=== PATIENT | female | born 1950 | race Caucasian/White ===

== ENCOUNTER 2017-02-01 21:55 | Emergency (ER) | payer BC, OTHER ==
[2017-02-02] MEDS ORDERED: NORMAL SALINE 500 ML IV ONE (00:11)
--- NOTE | 2017-02-02 00:11 | ER Document Report ---
ED Fever - General Mode of Arrival: Ambulatory Information source: Patient, Relative - spouse - HPI Patient complains to provider of: fever Associated symptoms: Other - See above <SANTIAGO ASHFORD - Last Filed: 02/02/17 02:09> <BLAYNE PINZON - Last Filed: 02/03/17 21:21> - General Chief Complaint: Fever Stated Complaint: FEVER Notes: Patient is a 66 year old female, with a past medical history including HTN and diabetes, who presents to the emergency department complaining of fever. Patient 's reports the fever has been intermittent for the past 5 days and got up to 104 today just prior to arrival. Patient has been taking Tylenol and Motrin at home and began a Tamaflu course on Thursday night. Patient also complains of body aches and diaphoresis. Patient denies nausea, shortness of breath, cough, diarrhea, and sore throat. states that last Tylenol dose was at 2000. PCP: Dr. Watkins (SANTIAGO ASHFORD) - Related Data Allergies/Adverse Reactions: shrimp shells Adverse Reaction (Mild, Uncoded 01/13/13 08:50) swelling Past Medical History - General Information source: Patient - Social History Smoking Status: Unknown if Ever Smoked Family History: Reviewed & Not Pertinent - Past Medical History Cardiac Medical History: Reports: Hx Hypertension - TAKEN MED SINCE 2 YRS Pulmonary Medical History: Reports: Hx Bronchitis - YRS AGO Endocrine Medical History: Reports: Hx Diabetes Mellitus Type 1 - SINCE 4 YRS Musculoskeltal Medical History: Reports Hx Arthritis Past Surgical History: Reports: Hx Abdominal Surgery - GALLBLADDER - Immunizations Hx Diphtheria, Pertussis, Tetanus Vaccination: Yes Hx Pneumococcal Vaccination: 10/19/09 <SANTIAGO ASHFORD - Last Filed: 02/02/17 02:09> Review of Systems - Review of Systems Constitutional: See HPI, Diaphoresis, Fever, Other - body aches EENT: denies: Throat pain Cardiovascular: No symptoms reported Respiratory: denies: Cough, Short of breath Gastrointestinal: denies: Nausea Genitourinary: No symptoms reported Female Genitourinary: No symptoms reported Musculoskeletal: No symptoms reported Skin: No symptoms reported Hematologic/Lymphatic: No symptoms reported Neurological/Psychological: No symptoms reported -: Yes All other systems reviewed and negative <SANTIAGO ASHFORD - Last Filed: 02/02/17 02:09> Physical Exam - Vital signs Interpretation: Febrile - General General appearance: Appears well, Alert - HEENT Head: Normocephalic, Atraumatic - Respiratory Respiratory status: No respiratory distress Chest status: Nontender Breath sounds: Normal Chest palpation: Normal - Cardiovascular Rhythm: Regular Murmur: Yes - 4 out 4 systolic ejection - Abdominal Inspection: Normal Distension: No distension Bowel sounds: Normal Tenderness: Nontender Organomegaly: No organomegaly - Extremities General upper extremity: Normal inspection General lower extremity: Normal inspection - Neurological Neuro grossly intact: Yes Cognition: Normal Orientation: AAOx4 Sly Coma Scale Eye Opening: Spontaneous [place] Coma Scale Verbal: Oriented [place] Coma Scale Motor: Obeys Commands Sly Coma Scale Total: 15 Speech: Normal - Psychological Associated symptoms: Normal affect, Normal mood - Skin Skin Temperature: Hot Skin Moisture: Dry Skin Color: Normal <SANTIAGO ASHFORD - Last Filed: 02/02/17 02:09> <BLAYNE PINZON - Last Filed: 02/03/17 21:21> - Vital signs Vitals: Temp Pulse BP Pulse Ox 99.3 F 92 132/49 H 96 02/01/17 22:43 02/01/17 22:43 02/01/17 22:43 02/01/17 22:43 Course - Laboratory Result Diagrams: 02/02/17 00:33 02/02/17 00:33 <SANTIAGO ASHFORD - Last Filed: 02/02/17 02:09> - Laboratory Result Diagrams: 02/02/17 00:33 02/02/17 00:33 <BLAYNE PINZON - Last Filed: 02/03/17 21:21> - Re-evaluation Re-evalutation: 02/02/17 02:47 Patient presents emergency, chief with a fever. Fever onset Tmax 104 today. States it was intermittently present when she woke up this morning she felt great and then it came back a couple hours later she's been taking Tylenol Motrin which controlled her fever. She had some bodyaches the other day so her daughter gave her some leftover Tamiflu which she took 4 times. She has any headache blurred vision double vision neck pain and stiffness cough chest pain shortness breath nausea vomiting dull pain diarrhea or urinary symptoms flank pain. On examination she is afebrile well-appearing nontoxic no acute distress with no nuchal rigidity heart lungs abdomen soft no guarding rebound rigidity. Urinalysis came back showing a significantly large urinary tract infection. Patient given IV Rocephin discharge on Macrobid no acute concerns for pyelonephritis or kidney stone. Patient will be discharged on Macrobid follow primary care physician one to 2 days fever control and discussed reasons for ED return sooner (BLAYNE PINZON) - Vital Signs Vital signs: Temp Pulse Resp BP Pulse Ox 99.9 F 88 16 149/51 H 98 02/02/17 04:11 02/02/17 04:11 02/02/17 04:11 02/02/17 04:11 02/02/17 04:11 - Laboratory Laboratory results interpreted by me: 02/02/17 02/02/17 02/02/17 00:33 00:33 02:03 RBC 3.50 L Hgb 10.5 L Hct 30.3 L Seg Neutrophils % 82.2 H Lymphocytes % 8.9 L Absolute Neutrophils 8.5 H Potassium 3.5 L BUN 35 H Est GFR (Non-Af Amer) 59 L Glucose 128 H AST 39 H Urine Protein 30 H Urine Blood MODERATE H Urine Nitrite POSITIVE H Ur Leukocyte Esterase LARGE H Discharge <SANTIAGO ASHFORD - Last Filed: 02/02/17 02:09> <BLAYNE PINZON - Last Filed: 02/03/17 21:21> - Discharge Clinical Impression: UTI (urinary tract infection) Qualifiers: Urinary tract infection type: acute cystitis Hematuria presence: without hematuria Qualified Code(s): N30.00 - Acute cystitis without hematuria Condition: Stable Disposition: HOME, SELF-CARE Instructions: Urinary Tract Infection, Child ([facility]) Additional Instructions: Urinary Tract Infection Your evaluation indicates that you have a urinary tract infection. This is due to germs growing in the bladder. This is a common problem. This infection usually responds quickly to antibiotics. Your antibiotic should be taken exactly as prescribed. Drink plenty of fluids -- three to four quarts a day. Occasionally, a bladder anesthetic will be prescribed to help stop the feeling of urgency until the antibiotic has a chance to clear the infection. This may cause your urine to be dark orange. Certain urine infections require a culture. If the doctor obtained a culture, the results will be back in two days. You should call to see if a change in treatment is needed. A repeat urinalysis after you finish treatment is often recommended. The physician will let you know if further testing is required. Call the doctor if you develop fever, chills, flank pain, inability to urinate, or blood in the urine. Prescriptions: Nitrofurantoin/Nitrofuran Mac [Macrobid 100 mg Capsule] 1 tab PO BID #20 capsule Referrals: ROBERT WATKINS MD [Primary Care Provider] - Follow up tomorrow (In one to 2 days return for increasing worsening or new symptoms) Scribe Attestation: 02/03/17 21:21 i personally performed the services described in the documentation, reviewed the documentation recorded by the scribe in my presence and accurately and completely records my words and actions (BLAYNE PINZON) Scribe Documentation - Scribe Written by Charlie:: charlie Olguin, 02/02/17, 0217 acting as scribe for :: Joe <SANTIAGO ASHFORD - Last Filed: 02/02/17 02:09>
[2017-02-02 00:47] LABS: ABSOLUTE LYMPHOCYTES (AUTO) 0.9 10^3/uL (0.5-4.7); ABSOLUTE MONOCYTES (AUTO) 0.9 10^3/uL (0.1-1.4); ABSOLUTE NEUT (AUTO) 8.5 10^3/uL (1.7-8.2); BASOPHILS % (AUTO) 0.3 % (0-2); EOSINOPHILS % (AUTO) 0.1 % (0-6); HEMATOCRIT 30.3 % (36.0-47.0); HEMOGLOBIN 10.5 g/dL (12.0-15.5); HGB HCT DIFFERENCE 1.2; LYMPHOCYTES % (AUTO) 8.9 % (13-45); MEAN CORPUSCULAR HGB CONC 34.7 g/dL (32.0-36.0); MEAN CORPUSCULAR VOLUME 87 fl (80-97); MONOCYTES % (AUTO) 8.5 % (3-13); RED CELL DISTRIBUTION WIDTH 13.2 % (11.5-14.0); SEGMENTED NEUTROPHILS % (AUTO) 82.2 % (42-78); WHITE BLOOD COUNT 10.3 10^3/uL (4.0-10.5)
[2017-02-02 01:06] LABS: ALANINE AMINOTRANSFERASE 44 U/L (9-52); ALBUMIN 3.9 g/dL (3.5-5.0); ALKALINE PHOSPHATASE 59 U/L (38-126); ANION GAP 14 (5-19); ASPARTATE AMINO TRANSFERASE 39 U/L (14-36); BILIRUBIN,DIRECT 0.2 mg/dL (0.0-0.4); BILIRUBIN,TOTAL 0.5 mg/dL (0.2-1.3); BLOOD UREA NITROGEN 35 mg/dL (7-20); CALCIUM 10.1 mg/dL (8.4-10.2); CARBON DIOXIDE 25 mmol/L (22-30); CHLORIDE 100 mmol/L (98-107); CREATININE RESULT 0.94 mg/dL (0.52-1.25); GLUCOSE 128 mg/dL (75-110); POTASSIUM 3.5 mmol/L (3.6-5.0); SODIUM 139.4 mmol/L (137-145); TOTAL PROTEIN 6.8 g/dL (6.3-8.2)
[2017-02-02 01:17] LABS: TROPONIN I 0.02 ng/mL
[2017-02-02 02:32] LABS: APPEARANCE,URINE CLOUDY; BILIRUBIN,URINE NEGATIVE (NEGATIVE); GLUCOSE, URINE NEGATIVE (NEGATIVE); KETONES,URINE NEGATIVE (NEGATIVE); LEUKOCYTE ESTERASE,URINE LARGE (NEGATIVE); NITRITE,URINE POSITIVE (NEGATIVE); PROTEIN,URINE 30 mg/dL (NEGATIVE); URINE SPECIFIC GRAVITY 1.014; UROBILINOGEN,URINE NEGATIVE mg/dL (<2.0)
[2017-02-02] MEDS ORDERED: CEFTRIAXONE INJ 1000 MG VIAL IV ONE (02:46)
[2017-02-02 04:26] VITALS: BP 149/51
== END 2017-02-02 04:27 | disposition home or self-care (01) ==
LOC: ER 21:55
DX: N30.00 Acute cystitis without hematuria (principal); R50.9 Fever, unspecified; I10 Essential (primary) hypertension; R61 Generalized hyperhidrosis; R52 Pain, unspecified; E10.9 Type 1 diabetes mellitus without complications; R01.1 Cardiac murmur, unspecified
CPT/HCPCS: 99284; 96361; 96365; 36415; 87070; 87086; 87880; 85025; 87088; 80053; 81001; 84484; 87186; 87804; 83880; 71020; J0696; J7040

== ENCOUNTER 2017-08-04 10:23 | Day surgery (SDC) | payer MEDICARE ==
[~2017-08-04 10:23] MED LIST: BUPIVACAINE HCL 0.75% INJ/PF (7.5 MG/1 ML) 10 ML SDV OD PRN; CHONDR SU A NA/HYALUR INTRAOC KIT (SURGICARE) ONE; KETOROLAC TROMETHAMINE 0.45% 4 DROP/0.4 ML DROPERETTE OD PRN; LIDOCAINE 4% INJ/PF (40 MG/ML) 5 ML AMPUL OD PRN; PHENYLEPHRINE/KETOROLAC 1%-0.3% 4 ML VIAL ONE
[2017-08-04] MEDS: CYCLOPENTOLATE 0.2%/PHENYLEPHRINE 1% OPH SOLN 2 ML OD PRN ×3 (10:37→10:57)
[2017-08-04] MEDS: BESIFLOXACIN HCL 0.6% OPH SUSP 5 ML BOTTLE OD PRN ×4 (10:37→11:36)
[2017-08-04] MEDS: TROPICAMIDE 1% OPH SOLN 3 ML OD PRN ×3 (10:37→10:57)
[2017-08-04] MEDS: TETRACAINE HCL 0.5% OPH SOLN 0.6 ML DROPERETTE OD PRN ×2 (10:38→10:57)
[2017-08-04] MEDS ORDERED: MIDAZOLAM 2 MG/2 ML INJ ONE (11:00)
[2017-08-04] MEDS ORDERED: LIDOCAINE 1% INJ-PF (10 MG/ML) 30 ML SDV ONE (11:20)
--- NOTE | 2017-08-04 11:53 | [facility] OPERATIVE REPORT E ---
[facility] Operative Report NAME: ATIYA SOTOMAYOR AGE: 67Y DATE OF SURGERY: 08/04/2017 ROOM: PREOPERATIVE DIAGNOSIS: Cataract, right eye. POSTOPERATIVE DIAGNOSIS: Cataract, right eye. PROCEDURE PERFORMED: Phacoemulsification with posterior chamber intraocular lens, right eye. SURGEON: Nieves Fairbanks MD ANESTHESIA: Topical with MAC. INDICATIONS FOR SURGERY: Difficulty reading road signs and words on TV. Unable to see view of the retina. Best corrected visual acuity 20/400. PROCEDURE: The patient was brought to the operating room and placed on the operative table. Following tetracaine drops, topical anesthesia was administered. This consisted of instrument wipe pledgets soaked in a solution of 4% Xylocaine mixed with 0.75% Marcaine in a 1:2 ratio. A 2 x 1 cm pledget was placed in the superior fornix. A 1 x 1 cm pledget was placed in the inferior fornix. The eye was patched shut for 5 minutes. The patch was removed. The eye was sterilely prepped and draped in the usual manner. Lid speculum was placed in the eye. The pledgets were removed. 4-0 black silk sutures were placed around the superior and the inferior rectus muscles to be used as traction. A conjunctival peritomy was made at the 10 o'clock position. Hemostasis was obtained with bipolar cautery. A posterior limbal groove was created using a crescent knife and dissected anteriorly towards the cornea. A sharp point blade was used to create a paracentesis site at the 2 o'clock position. A 2.4 mm keratome was used to enter the anterior chamber through the groove. Viscoelastic was injected into the anterior chamber. An anterior capsulotomy was performed using Utrata forceps in a capsulorrhexis fashion. Hydrodissection and hydrodelineation were performed. Phacoemulsification was performed in [id number] technique. A total of 2 minutes 52 seconds phaco time was used. Following this, the I/A unit was used to remove residual cortex. Viscoelastic was injected into the capsular bag. Intraocular lens model [id number], 23.0 diopters, serial number [id number] was placed in the capsular bag. The I/A unit was used to remove residual viscoelastic. The wound was seen to be watertight under high and low pressure, and no sutures were placed. The intraocular lens was well centered. The pressure was adjusted in the eye to normal pressure. The 4-0 black silk sutures and lid speculum were removed. The eye was shielded after Besivance drops were placed. The patient tolerated the procedure well and was sent to the recovery room in good condition. DICTATING PHYSICIAN: NIEVES FAIRBANKS M.D. [id number] PHY#: [id number] ID: [id number] JOB#: [id number] ACCT: [id number] cc:NIEVES FAIRBANKS M.D. >
--- NOTE | 2017-08-04 11:53 | [facility] DISCHARGE SUMMARY E ---
[facility] Discharge Summary NAME: ATIYA SOTOMAYOR AGE: 67Y ADMITTED: 08/04/2017 DISCHARGED: 08/04/2017 PREOPERATIVE DIAGNOSIS: Cataract, right eye. POSTOPERATIVE DIAGNOSIS: Cataract, right eye. HOSPITAL COURSE: The patient is a 67-year-old lady who underwent uneventful cataract extraction with intraocular lens implant, right eye, on 08/04/2017. She will be discharged to home. She was instructed to resume preoperative medications, take Tylenol as needed for discomfort, to keep her eye shielded, to use Besivance, Durezol, and Ilevro at 3 p.m. and 8 p.m., and to followup in my office in 1 day. DICTATING PHYSICIAN: GREARDO FAIRBANKS M.D. [id number] PHY#: [id number] ID: [id number] JOB#: [id number] ACCT: [id number] cc:GERARDO FAIRBANKS M.D. >
== END 2017-08-04 12:30 | disposition home or self-care (01) ==
LOC: SC 10:23
PROVIDERS: ATTEND Ophthalmology
PROC: 08RJ3JZ Replacement of Right Lens with Synthetic Substitute, Percutaneous Approach (ICD-10-PCS; principal; 2017-08-04 11:30)
DX: H25.811 Combined forms of age-related cataract, right eye (principal); H04.123 Dry eye syndrome of bilateral lacrimal glands; H40.023 Open angle with borderline findings, high risk, bilateral; E11.9 Type 2 diabetes mellitus without complications; I10 Essential (primary) hypertension; E78.00 Pure hypercholesterolemia, unspecified; M19.90 Unspecified osteoarthritis, unspecified site; K21.9 Gastro-esophageal reflux disease without esophagitis; Z79.899 Other long term (current) drug therapy; Z79.82 Long term (current) use of aspirin; Z79.84 Long term (current) use of oral hypoglycemic drugs
CPT/HCPCS: 66984; 82962; V2632; J2250; J3490 ×2; C9447; 142

== ENCOUNTER 2019-01-22 20:29 | Emergency (ER) | payer MEDICARE ==
[2019-01-22] MEDS ORDERED: HYDROCODONE/ACETAMINOPHEN 5-325 MG TABLET PO ONE (21:52)
[2019-01-22] MEDS ORDERED: DIPH/PERTUSS(ACELL)/TETANUS VAC/PF 0.5 ML SYR (>=10YO) IM ONE (21:52)
--- NOTE | 2019-01-22 21:58 | ER Document Report ---
ED General - General Chief Complaint: Facial Injury Stated Complaint: FALL/FACIAL INJURY Time Seen by Provider: 01/22/19 21:37 Mode of Arrival: Ambulatory Information source: Patient TRAVEL OUTSIDE OF THE [place] IN LAST 30 DAYS: No - HPI Patient complains to provider of: Ground-level fall with facial injury and right knee injury Onset: Just prior to arrival Onset/Duration: Sudden Severity: Moderate Pain Level: 3 Associated symptoms: None Exacerbated by: Denies Relieved by: Denies Similar symptoms previously: No Recently seen / treated by doctor: No Notes: Constitutional: No fevers. No chills. EENT: No eye redness. No eye pain. No ear pain. No sore throat. Right-sided face and chin abrasion. Positive for mucosal lip laceration Cardiovascular: No chest pain. No palpitations. Respiratory: No cough. No shortness of breath. No respiratory distress. Gastrointestinal: No abdominal pain. No nausea, vomiting, or diarrhea. Genitourinary: Atraumatic. No lesions. No pain. No discharge. Musculoskeletal: Atraumatic. No swelling. No deformities. Positive for right knee pain and swelling Skin: No rash or lesions. Lymphatic: No swollen lymph nodes. Neurologic: No headache. No syncope. Psychiatric: No suicidal or homicidal ideation. - Related Data Allergies/Adverse Reactions: shrimp shells Adverse Reaction (Mild, Uncoded 01/22/19 20:32) swelling Past Medical History - General Information source: Patient - Social History Smoking Status: Never Smoker Chew tobacco use (# tins/day): No Drug Abuse: None Family History: Reviewed & Not Pertinent Patient has suicidal ideation: No Patient has homicidal ideation: No - Past Medical History Cardiac Medical History: Reports: Hx Hypertension - ON MEDS Denies: Hx Coronary Artery Disease, Hx Heart Attack Pulmonary Medical History: Reports: Hx Bronchitis - YRS AGO Denies: Hx Asthma, Hx COPD, Hx Pneumonia Neurological Medical History: Denies: Hx Cerebrovascular Accident, Hx Seizures Endocrine Medical History: Reports: Hx Diabetes Mellitus Type 1 - SINCE 6 YRS Renal/ Medical History: Denies: Hx Peritoneal Dialysis GI Medical History: Denies: Hx Hepatitis, Hx Hiatal Hernia, Hx Ulcer Musculoskeletal Medical History: Reports Hx Arthritis Infectious Medical History: Denies: Hx Hepatitis Past Surgical History: Reports: Hx Abdominal Surgery - GALLBLADDER. Denies: Hx Adenoidectomy, Hx Hysterectomy, Hx Mastectomy, Hx Open Heart Surgery, Hx Pacemaker - Immunizations Hx Diphtheria, Pertussis, Tetanus Vaccination: Yes Hx Pneumococcal Vaccination: 10/19/09 Physical Exam - Vital signs Vitals: Temp Pulse Resp BP Pulse Ox 98.0 F 82 18 162/58 H 100 01/22/19 21:00 01/22/19 21:00 01/22/19 21:00 01/22/19 21:00 01/22/19 21:00 - Notes Notes: General: Well-developed, well-nourished. In no acute distress. Non-toxic appearing. Cardiac: Well-perfused. Regular rate and rhythm. No murmurs, rubs, or gallops. Pulmonary: No respiratory distress. No cyanosis. Bilateral lung bonilla are clear to auscultation. Abdominal: Non-distended. Non-rigid. Bowels sounds are present in all four quadrants. No guarding or rebound. HEENT: Head is atraumatic. Conjunctivae not reddened. No tearing. PERRL. EOMI. Orbits atraumatic. No periorbital swelling or erythema. Oropharynx is without erythema, swelling, or exudates. Abrasions to the right maxillary region and right chin. There is a jagged avulsed laceration to the right lateral chin whi ch measures approximately 3 cm and extends into the subcutaneous tissues. There is a small puncture half centimeter laceration to the inner mucosa of the right upper lip. There is no vermilion border involvement. There is a swelling and bruising along the nose without any asymmetry. No septal hematomas. Dentition is unaffected. There is no dental malalignment. Neck: Supple. No adenopathy. No meningismus. Dermatologic: Warm with good turgor. No rash. Atraumatic. Chest: Atraumatic. No chest wall tenderness to palpation. Musculoskeletal: Moves all extremities well. No range of motion deficits. no muscular or joint tenderness. No paraspinal muscle tenderness. no midline spinal tenderness or step-off. The right anterior knee is moderately swollen and bruised diffusely tender to palpate. Full range of motion. No obvious laxity. Distal neurovascular exam is intact. There are multiple abrasions to the vulvar aspect of the left wrist without any bony deformity or range of motion deficits. Distal neurovascular exam is intact Genitourinary: Examination deferred Neurologic: No gross neurologic deficits. Psychiatric: Normal mood. Course - Vital Signs Vital signs: Temp Pulse Resp BP Pulse Ox 98.0 F 82 18 162/58 H 100 01/22/19 21:00 01/22/19 21:00 01/22/19 21:00 01/22/19 21:00 01/22/19 21:00 Procedures - Laceration/Wound Repair Chin Time completed: 00:38 Wound length (cm): 3 Wound's Depth, Shape: Irregular, Contused tissue Laceration pre-procedure: Sterile PPE donned, Sterile drapes applied, Shur-Clens applied Anesthetic type: 1% Lidocaine Volume Anesthetic (mLs): 10 Wound explored: Contaminated, Foreign body removed - There was a tiny piece of road material/asphalt embedded in the wound. Irrigated w/ Saline (mLs): 120 Wound Debrided: Minimal Wound Repaired With: Sutures Suture Size/Type: 6:0, Ethilon Number of Sutures: 5 Layer Closure?: No Post-procedure wound care: Sterile dressing applied Post-procedure NV exam normal: Yes Complications: No Notes: 01/23/19 00:39 Patient tolerated the procedure well Discharge - Discharge Clinical Impression: Elevated blood pressure reading Facial contusion Qualifiers: Encounter type: initial encounter Qualified Code(s): S00.83XA - Contusion of other part of head, initial encounter Facial abrasion Qualifiers: Encounter type: initial encounter Qualified Code(s): S00.81XA - Abrasion of other part of head, initial encounter Chin laceration Qualifiers: Encounter type: initial encounter Qualified Code(s): S01.81XA - Laceration without foreign body of other part of head, initial encounter Condition: Good Disposition: HOME, SELF-CARE Instructions: Antibiotic Ointment Protection ([facility]), Laceration Care ([facility]), Oral Narcotic Medication ([facility]), Tetanus Immunization Given ([facility]), Soap Cleansing ([facility]), Facial Laceration ([facility]) Additional Instructions: Please keep the wound gently clean with soap and water. Be sure to get the wound checked in 2-3 days. Start taking the Keflex tomorrow. You can use the pain medication given to you tonight as needed for pain. Sutures can be removed from your chin and as early as 5 days and hopefully no later than 7. Prescriptions: Cephalexin Monohydrate [Keflex 500 mg Capsule] 500 mg PO Q6H 5 Days #28 capsule Hydrocodone/Acetaminophen [[place] 5-325 mg Tablet] 1 tab PO Q6H #12 tablet Forms: Elevated Blood Pressure Print Language: Slovenian
--- NOTE | 2019-01-22 22:43 | RADIOLOGY REPORT (SQ) ---
EXAM DESCRIPTION: RadLex: CT MAXILLOFACIAL WITHOUT IV CONTRAST CLINICAL HISTORY: 68 years Female; facial injury TECHNIQUE: High resolution axial CT of the face without contrast, with sagittal and coronal reformatted images. All CT scans at this facility use dose modulation, iterative reconstruction, and/or weight based dosing when appropriate to reduce radiation dose to as low as reasonably achievable. COMPARISON: None. FINDINGS: There is a focal laceration of the right chin, with a 2 mm subcutaneous foreign body seen on series 3 image 14. No significant hematoma. Mild right periorbital subcutaneous hemorrhage/edema is noted. No retro-orbital hematoma. 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 Facial bones are intact. Mandible is intact. No sinus air-fluid levels. There is chronic right nasal septal deviation. There is elza bullosa of the left middle turbinate. However cell slightly narrows the right maxillary ostium. There is mild chronic mucosal thickening in the floor the left maxillary sinus. Left maxillary ostium is somewhat narrowed. No retro-orbital hematoma. IMPRESSION: 1. No acute facial fractures. 2. 2 mm subcutaneous foreign body associated with laceration of the right chin.
--- NOTE | 2019-01-22 22:57 | RADIOLOGY REPORT (SQ) ---
EXAM DESCRIPTION: XR KNEE 4 OR MORE VIEWS COMPLETED DATE/TME: 01/22/2019 21:53 CLINICAL HISTORY: 68 years Female, right knee injury COMPARISON: None. Findings: Mild tricompartmental osteoarthritis. Atherosclerotic vascular disease. Bone demineralization. Small superior patellar enthesophyte. Bones, joints, and soft tissues of the RIGHT XR KNEE 4 OR MORE VIEWS appear otherwise unremarkable. IMPRESSION: No acute findings.
[2019-01-23] MEDS ORDERED: HYDROCODONE/ACETAMINOPHEN 5-325 MG (6 TAB/ER DISP) PO PRN (00:43)
[2019-01-23] MEDS ORDERED: HYDROCODONE/ACETAMINOPHEN 5-325 MG TABLET PO ONE (00:43)
[2019-01-23] MEDS ORDERED: CEPHALEXIN 500 MG CAPSULE PO ONE (00:43)
[2019-01-23 01:20] VITALS: BP 145/60
== END 2019-01-23 01:20 | disposition home or self-care (01) ==
LOC: ER 20:29
DX: S01.81XA Laceration without foreign body of other part of head, initial encounter (principal); S00.83XA Contusion of other part of head, initial encounter; S89.91XA Unspecified injury of right lower leg, initial encounter; W18.30XA Fall on same level, unspecified, initial encounter; I10 Essential (primary) hypertension; E10.9 Type 1 diabetes mellitus without complications; Z23 Encounter for immunization
CPT/HCPCS: 99284; 90471; 73564; 70486; 90715; 12013; A9270 ×4

== ENCOUNTER 2019-01-23 02:35 | Emergency (ER) | payer MEDICARE ==
--- NOTE | 2019-01-23 03:22 | ER Document Report ---
ED Syncope and Near Syncope <EMILY RUEDA - Last Filed: 01/23/19 05:56> - General Mode of Arrival: Medic Information source: Patient TRAVEL OUTSIDE OF THE [place] IN LAST 30 DAYS: No - HPI Patient complains to provider of: Other - possible seizure Episode witnessed (by whom): Yes - , daughter <JEWEL MCQUEEN - Last Filed: 01/23/19 06:55> - General Chief Complaint: Syncope Stated Complaint: SYNCOPE Time Seen by Provider: 01/23/19 02:59 Primary Care Provider: ROBERT HERNANDEZ MD [Primary Care Provider] - Follow up as needed - HPI Notes: Patient is here via EMS with family at the bedside. The patient was actually here several hours ago after having a trip and fall causing an injury to her face with last vision. CT of the maxillofacial bones was negative aside from a foreign body within the laceration. X-rays of the knee were negative as well. Patient had laceration repaired. She was given [place], she went home. Apparently while sitting at the table, she states that she stated that she did not feel well she then started staring off into space and had some shaking activity from her upper extremities. Family states that she never close her eyes, fell or had "loss of consciousness", but certainly not with them. Patient does not recall any of this. She has no history of seizures. She denies any significant headache. She denies any blurred or loss vision. She denies any unilateral numbness, tingling, weakness. She is not on blood thinning medications. She tells me that she was recently seen at [facility] and was told that she was anemic which is new for her. She does not recall exactly what her hemoglobin was. She denies any black tarry stools or bleeding from anywhere. She denies any specific history of anemia in the past. She was diagnosed with urinary tract infection and is currently taking Cipro for that. She denies any abdominal pain at this time. No nausea, vomiting, diarrhea. No rash. No chest pain or shortness of breath. No other complaints at this time. (JEWEL MCQUEEN) - Related Data Allergies/Adverse Reactions: shrimp shells Adverse Reaction (Mild, Uncoded 01/22/19 20:32) swelling Past Medical History - Social History Smoking Status: Never Smoker Chew tobacco use (# tins/day): No Frequency of alcohol use: None Drug Abuse: None Family History: Reviewed & Not Pertinent Patient has suicidal ideation: No Patient has homicidal ideation: No - Past Medical History Cardiac Medical History: Reports: Hx Hypertension - ON MEDS Denies: Hx Coronary Artery Disease, Hx Heart Attack Pulmonary Medical History: Reports: Hx Bronchitis - YRS AGO Denies: Hx Asthma, Hx COPD, Hx Pneumonia Neurological Medical History: Denies: Hx Cerebrovascular Accident, Hx Seizures Endocrine Medical History: Reports: Hx Diabetes Mellitus Type 1 - SINCE 6 YRS Renal/ Medical History: Denies: Hx Peritoneal Dialysis GI Medical History: Denies: Hx Hepatitis, Hx Hiatal Hernia, Hx Ulcer Musculoskeletal Medical History: Reports Hx Arthritis Infectious Medical History: Denies: Hx Hepatitis Past Surgical History: Reports: Hx Abdominal Surgery - GALLBLADDER. Denies: Hx Adenoidectomy, Hx Hysterectomy, Hx Mastectomy, Hx Open Heart Surgery, Hx Pacemaker - Immunizations Hx Diphtheria, Pertussis, Tetanus Vaccination: Yes Hx Pneumococcal Vaccination: 10/19/09 <JEWEL MCQUEEN - Last Filed: 01/23/19 06:55> Review of Systems - Review of Systems -: Yes All other systems reviewed and negative <JEWEL MCQUEEN - Last Filed: 01/23/19 06:55> Physical Exam <JEWEL MCQUEEN - Last Filed: 01/23/19 06:55> - Vital signs Vitals: Temp Pulse Resp BP Pulse Ox 97.8 F 68 16 121/62 94 01/23/19 02:56 01/23/19 02:56 01/23/19 02:56 01/23/19 02:56 01/23/19 02:56 - Notes Notes: GENERAL: alert, cooperative, nontoxic, no distress. HEAD: normocephalic, abrasions with contusions and swelling to the right maxillary area as well as the right chin. Sutured laceration to the right chin. No active bleeding. EYES: conjunctiva pink without discharge, no external redness or swelling. Pupils are equal, round, reactive to light. EARS: no external swelling, no external redness. TMs pearly [place] with no hemotympanum. No perforation. NOSE: Abrasions to the nose. No active bleeding. MOUTH/THROAT: mucous membranes moist and pink, posterior pharynx without amarilys thema, swelling, exudate. No trismus or drooling. Lip swelling and abrasion. NECK: soft, supple, full range of motion, no meningismus. No midline tenderness, step-offs or crepitus. CHEST: no distress, lungs clear and equal throughout. No wheezing, rales, rhonchi. CARDIAC: regular rate and rhythm, no murmur, normal capillary refill, normal pulses. No peripheral edema noted. ABDOMEN: Soft, round, nontender to palpation. No rebound tenderness or guarding. RECTAL: External hemorrhoids noted. Brown stool noted on rectal exam. No mass or tenderness. Hemoccult negative. BACK: full range of motion, no CVA tenderness. No midline tenderness, step-offs or crepitus. EXTREMITIES: full range of motion of all extremities. No redness. NEURO: alert and oriented x 3, cranial nerves II through XII are grossly intact. Upper and lower extremities are equal throughout. Normal sensation. No focal deficits, full range of motion of all extremities. normal finger to nose. PYSCH: appropriate mood, affect. Patient is cooperative. SKIN: pink, warm, dry, no rash. (JEWEL MCQUEEN) Course - Laboratory Result Diagrams: 01/23/19 02:50 01/23/19 02:50 <EMILY RUEDA - Last Filed: 01/23/19 05:56> - Laboratory Result Diagrams: 01/23/19 02:50 01/23/19 02:50 - Diagnostic Test Radiology reviewed: Image reviewed, Reports reviewed - Negative head CT, negative cervical spine, negative chest x-ray. - EKG Interpretation by Me EKG shows normal: Sinus rhythm, [place], Intervals, QRS Complexes, ST-T Waves When compared to previous EKG there are: Other - No ST elevation or depression, no STEMI. Rate 74. <JEWEL MCQUEEN - Last Filed: 01/23/19 06:55> - Re-evaluation Re-evalutation: 01/23/19 05:56 Patient seen and evaluated by myself independently of [facility]. I agree with plan of care and workup. Patient has facial abrasions on the right side of her face with no active bleeding. She is mentating appropriately with no focal neurologic deficits. She is hemodynamically stable. She states her pain is well controlled and only mild in her knee. Patient appeared to have a full syncopal episode versus seizure today. Her repeat imaging is normal. She will be admitted to the hospital for continued telemetry monitoring. Patient in agreement with this plan of care. (EMILY RUEDA) 01/23/19 05:13 Patient is resting comfortably at this time. I will gone over her current lab and imaging results with the patient. Rectal exam was performed and was Hemoccult negative. Currently awaiting chest x-ray reading as well as urinalysis results. Plan will be to admit to the hospital for further evaluation and management. We will continue to monitor. 01/23/19 05:49 Patient resting comfortably at this time. Vitals are stable. No orthostatic hypotension. Nontoxic exam. The patient was seen earlier last evening after a trip and fall with a facial contusion and laceration. CT of the maxillofacial bones was unremarkable at that time. She was sent home and while sitting at the table, commented that she did not feel well and then either had a seizure type activity or a syncopal episode. Patient has a nonfocal exam at this time. Head CT and cervical spine are negative. Chest x-ray is negative. BUN is slightly elevated. Hemoglobin is 9.6. The patient states that she was seen earlier at outside facility and was told she was anemic earlier this week and was started on iron, but she cannot remember her number. Rectal exam is negative. Remainder of her labs are unremarkable. Urinalysis shows signs of UTI, the patient is asymptomatic at this time and is currently on Cipro for UTI. She was given a dose of Rocephin and urine culture has been ordered. Patient will be given some IV fluids. Believe that the patient should be admitted for obs ervation status to further evaluate and manage. We will await discussion with the hospitalist for admission. Patient family are aware of this plan and agree. 01/23/19 06:43 Case discussed with the hospitalist here at [facility]. Due to the fact that there is no neurology coverage and the patient may have had seizure-like activity, they recommend transfer to an outside facility. I discussed this with the family. I have made a phone call to [facility] and I am currently awaiting return phone call. 01/23/19 06:54 Case was discussed with Dr. Robertson, neurology at [facility]. He has accepted the patient for transfer to their facility for further evaluation and. We will c benedicto to monitor until patient is transferred. (JEWEL MCQUEEN) - Vital Signs Vital signs: Temp Pulse Resp BP Pulse Ox 97.8 F 69 12 150/67 H 99 01/23/19 02:56 01/23/19 04:45 01/23/19 04:44 01/23/19 04:45 01/23/19 04:44 - Laboratory Laboratory results interpreted by me: 01/23/19 01/23/19 01/23/19 02:50 02:50 04:53 RBC 3.22 L Hgb 9.6 L Hct 28.1 L Chloride 108 H Carbon Dioxide 21 L BUN 40 H Est GFR (Non-Af Amer) 58 L Glucose 168 H Urine Protein 30 H Ur Leukocyte Esterase LARGE H Urine Ascorbic Acid 40 H Discharge <EMILY RUEDA - Last Filed: 01/23/19 05:56> <JEWEL MCQUEEN - Last Filed: 01/23/19 06:55> - Discharge Clinical Impression: UTI (urinary tract infection), Dehydration, Anemia, Seizure after head injury Condition: Stable Disposition: [facility] Referrals: ROBERT HERNANDEZ MD [Primary Care Provider] - Follow up as needed
[2019-01-23 03:32] LABS: ABSOLUTE EOSINOPHILS # (AUTO) 0.1 10^3/uL (0.0-0.6); ABSOLUTE LYMPHOCYTES (AUTO) 1.7 10^3/uL (0.5-4.7); ABSOLUTE MONOCYTES (AUTO) 0.7 10^3/uL (0.1-1.4); ABSOLUTE NEUT (AUTO) 6.4 10^3/uL (1.7-8.2); BASOPHILS % (AUTO) 0.4 % (0-2); EOSINOPHILS % (AUTO) 1.7 % (0-6); HEMATOCRIT 28.1 % (36.0-47.0); HEMOGLOBIN 9.6 g/dL (12.0-15.5); LYMPHOCYTES % (AUTO) 19.1 % (13-45); MEAN CORPUSCULAR HEMOGLOBIN 29.9 pg (27.0-33.4); MEAN CORPUSCULAR HGB CONC 34.3 g/dL (32.0-36.0); MEAN CORPUSCULAR VOLUME 87 fl (80-97); MONOCYTES % (AUTO) 7.9 % (3-13); PLATELET COUNT 422 10^3/uL (150-450); RED BLOOD COUNT 3.22 10^6/uL (3.72-5.28); RED CELL DISTRIBUTION WIDTH 13.7 % (11.5-14.0); SEGMENTED NEUTROPHILS % (AUTO) 70.9 % (42-78); TOTAL CELLS COUNTED % (AUTO) 100 %; WHITE BLOOD COUNT 9.1 10^3/uL (4.0-10.5)
[2019-01-23 03:57] LABS: ALANINE AMINOTRANSFERASE 19 U/L (9-52); ALBUMIN 3.9 g/dL (3.5-5.0); ALKALINE PHOSPHATASE 48 U/L (38-126); ANION GAP 11 (5-19); ASPARTATE AMINO TRANSFERASE 19 U/L (14-36); BILIRUBIN,DIRECT 0.2 mg/dL (0.0-0.4); BILIRUBIN,TOTAL 0.3 mg/dL (0.2-1.3); BLOOD UREA NITROGEN 40 mg/dL (7-20); CALCIUM 10.1 mg/dL (8.4-10.2); CARBON DIOXIDE 21 mmol/L (22-30); CHLORIDE 108 mmol/L (98-107); CREATINE KINASE 71 U/L (30-135); GLUCOSE 168 mg/dL (75-110); POTASSIUM 3.6 mmol/L (3.6-5.0); SODIUM 140.3 mmol/L (137-145); TOTAL PROTEIN 7.2 g/dL (6.3-8.2)
[2019-01-23 04:09] LABS: CREATINE KINASE MB 1.11 ng/mL (<4.55)
[2019-01-23 04:10] LABS: TROPONIN I < 0.012 ng/mL
--- NOTE | 2019-01-23 04:35 | RADIOLOGY REPORT (SQ) ---
CT head without contrast on 01/23/2019 at 3:31 AM CLINICAL INDICATION: Pain after fall TECHNIQUE: Multiple axial images are obtained throughout the head without the administration of contrast. This exam was performed according to our departmental dose-optimization program, which includes automated exposure control, adjustment of the mA and/or kV according to patient size and/or use of iterative reconstruction technique. Total DLP is 963.96 mGy*cm. COMPARISON: None FINDINGS: There is no hydrocephalus. There is no CT evidence of acute infarct. There is no hemorrhage. There are no abnormal extra-axial fluid collections. There is no mass, mass effect or midline shift. No bony abnormality is noted. Incidental cavum septum pellucidum is noted. IMPRESSION: No acute intracranial abnormality.
--- NOTE | 2019-01-23 04:41 | RADIOLOGY REPORT (SQ) ---
EXAM DESCRIPTION: CT CERVICAL SPINE WITHOUT IV CONTRAST COMPLETED DATE/TME: 01/23/2019 03:14 CLINICAL HISTORY: Fall/injury COMPARISON: None available TECHNIQUE: Axial CT of the cervical spine obtained without contrast. FINDINGS: Straightening of the cervical lordosis is likely secondary to patient positioning. The atlantoaxial, atlantodental, and occipitoatlantal intervals are preserved. No fracture identified. Vertebral body height preserved. Prevertebral soft tissues are unremarkable. Mild loss of intervertebral disc height at C5/6 and C6/7. Diffuse endplate spondylosis, uncovertebral spurring, and facet arthropathy. Mild osseous neural foraminal narrowing at C5/6. No significant osseous central canal narrowing. Visualized skull base is intact. No fracture of the visualized facial bones. Visualized mastoid air cells and paranasal sinuses are well aerated. No cervical lymphadenopathy. No pneumothorax in the visualized lung apices. Atherosclerotic vascular calcification. 1.6 cm hypodensity in the right thyroid. DLP: 335.60 mGy-cm IMPRESSION: 1. No acute fracture or subluxation of the cervical spine. 2. Multilevel degenerative change of the cervical spine. 3. There is a 1.6 cm hypodensity in the right thyroid. Follow-up thyroid ultrasound recommended. This exam was performed according to our departmental dose-optimization program, which includes automated exposure control, adjustment of the mA and/or kV according to patient size and/or use of iterative reconstruction technique.
[2019-01-23 05:12] LABS: APPEARANCE,URINE CLOUDY; BILIRUBIN,URINE NEGATIVE (NEGATIVE); COLOR,URINE YELLOW; GLUCOSE, URINE NEGATIVE (NEGATIVE); KETONES,URINE NEGATIVE (NEGATIVE); LEUKOCYTE ESTERASE,URINE LARGE (NEGATIVE); NITRITE,URINE NEGATIVE (NEGATIVE); PROTEIN,URINE 30 mg/dL (NEGATIVE); URINE SPECIFIC GRAVITY 1.017; UROBILINOGEN,URINE NEGATIVE mg/dL (<2.0)
--- NOTE | 2019-01-23 05:33 | RADIOLOGY REPORT (SQ) ---
EXAM DESCRIPTION: XR CHEST 1 VIEW COMPLETED DATE/TME: 01/23/2019 04:06 CLINICAL HISTORY: 68 years Female, possible seizure COMPARISON:Feb 02 2017 NUMBER OF VIEWS/TECHNIQUE: 1/AP FINDINGS: Adequate lung volume, clear parenchyma, normal cardiac silhouette, and intact bony thorax. IMPRESSION: No acute cardiopulmonary findings.
[2019-01-23] MEDS ORDERED: CEFTRIAXONE 1 GM/D5W RTU 1 G/50 ML RTUPB IV ONE (05:49)
[2019-01-23] MEDS ORDERED: CEFTRIAXONE 1 GM/D5W RTU 1 GM/50 ML RTUPB IV ONE (06:10)
[2019-01-23] MEDS ORDERED: CEFTRIAXONE INJ 1000 MG VIAL ONE (06:13)
[2019-01-23] MEDS ORDERED: IBUPROFEN 400 MG TABLET PO ONE (07:11)
--- NOTE | 2019-01-23 09:33 | EKG REPORT ---
SEVERITY:- BORDERLINE ECG - SINUS RHYTHM LA ABNORMALITY : Confirmed by: Mike Barreto MD 23-Jan-2019 09:33:14
[2019-01-23 19:32] VITALS: BP 160/57
== END 2019-01-23 20:02 | disposition short-term general hospital (02) ==
LOC: ER 02:35
DX: N39.0 Urinary tract infection, site not specified (principal); S09.90XA Unspecified injury of head, initial encounter; R56.9 Unspecified convulsions; E86.0 Dehydration; D64.9 Anemia, unspecified; R55 Syncope and collapse; W01.0XXA Fall on same level from slipping, tripping and stumbling without subsequent striking against object, initial encounter; Z79.899 Other long term (current) drug therapy; I10 Essential (primary) hypertension; E10.9 Type 1 diabetes mellitus without complications
CPT/HCPCS: 93005; 99285; 96365; 36415; 87086; 82553; 82962; 82550; 85025; 80053; 81001; 84484; 71045; 70450; 72125; 93010; A9270; J0696; J3490

== ENCOUNTER → 2019-03-22 | Outpatient (CLI) | payer MEDICARE ==
[2019-03-22 12:43] LABS: ABSOLUTE EOSINOPHILS # (AUTO) 0.1 10^3/uL (0.0-0.6); ABSOLUTE MONOCYTES (AUTO) 0.6 10^3/uL (0.1-1.4); ABSOLUTE NEUT (AUTO) 3.5 10^3/uL (1.7-8.2); BASOPHILS % (AUTO) 0.6 % (0-2); HEMATOCRIT 30.1 % (36.0-47.0); HEMOGLOBIN 10.2 g/dL (12.0-15.5); LYMPHOCYTES % (AUTO) 19.6 % (13-45); MEAN CORPUSCULAR HEMOGLOBIN 30.3 pg (27.0-33.4); MEAN CORPUSCULAR HGB CONC 33.8 g/dL (32.0-36.0); MEAN CORPUSCULAR VOLUME 90 fl (80-97); MONOCYTES % (AUTO) 11.4 % (3-13); PLATELET COUNT 445 10^3/uL (150-450); RED BLOOD COUNT 3.35 10^6/uL (3.72-5.28); RED CELL DISTRIBUTION WIDTH 16.6 % (11.5-14.0); SEGMENTED NEUTROPHILS % (AUTO) 66.4 % (42-78); TOTAL CELLS COUNTED % (AUTO) 100 %; WHITE BLOOD COUNT 5.2 10^3/uL (4.0-10.5)
== END ==
LOC: OD 11:06
PROVIDERS: ATTEND Internal Medicine
DX: D64.9 Anemia, unspecified (principal)
CPT/HCPCS: 36415; 85025

== ENCOUNTER → 2019-05-03 | Outpatient (CLI) | payer MEDICARE ==
[2019-05-03 17:39] LABS: ABSOLUTE EOSINOPHILS # (AUTO) 0.3 10^3/uL (0.0-0.6); ABSOLUTE LYMPHOCYTES (AUTO) 1.7 10^3/uL (0.5-4.7); ABSOLUTE MONOCYTES (AUTO) 0.5 10^3/uL (0.1-1.4); ABSOLUTE NEUT (AUTO) 3.5 10^3/uL (1.7-8.2); BASOPHILS % (AUTO) 0.5 % (0-2); EOSINOPHILS % (AUTO) 4.4 % (0-6); HEMATOCRIT 28.4 % (36.0-47.0); HEMOGLOBIN 9.5 g/dL (12.0-15.5); LYMPHOCYTES % (AUTO) 28.6 % (13-45); MEAN CORPUSCULAR HEMOGLOBIN 29.5 pg (27.0-33.4); MEAN CORPUSCULAR HGB CONC 33.3 g/dL (32.0-36.0); MEAN CORPUSCULAR VOLUME 89 fl (80-97); MONOCYTES % (AUTO) 8.6 % (3-13); PLATELET COUNT 356 10^3/uL (150-450); RED CELL DISTRIBUTION WIDTH 16.2 % (11.5-14.0); SEGMENTED NEUTROPHILS % (AUTO) 57.9 % (42-78); TOTAL CELLS COUNTED % (AUTO) 100 %; WHITE BLOOD COUNT 6.1 10^3/uL (4.0-10.5)
[2019-05-03 18:01] LABS: ALANINE AMINOTRANSFERASE 18 U/L (9-52); ALKALINE PHOSPHATASE 58 U/L (38-126); ASPARTATE AMINO TRANSFERASE 20 U/L (14-36); BILIRUBIN,DIRECT 0.1 mg/dL (0.0-0.4); BILIRUBIN,TOTAL 0.1 mg/dL (0.2-1.3); TOTAL PROTEIN 6.9 g/dL (6.3-8.2)
[2019-05-03 19:05] LABS: FOLATE > 20.00 ng/mL (>2.76)
== END ==
LOC: OD 16:49
PROVIDERS: ATTEND Internal Medicine
DX: D64.9 Anemia, unspecified (principal); Z79.899 Other long term (current) drug therapy
CPT/HCPCS: 36415; 80076; 82607; 82728; 82746; 85025

== ENCOUNTER → 2019-05-12 | Outpatient (CLI) | payer MEDICARE ==
[2019-05-12 09:37] LABS: ANION GAP 9 (5-19); BLOOD UREA NITROGEN 36 mg/dL (7-20); CALCIUM 10.1 mg/dL (8.4-10.2); CARBON DIOXIDE 26 mmol/L (22-30); CHLORIDE 106 mmol/L (98-107); GLUCOSE 124 mg/dL (75-110); POTASSIUM 4.5 mmol/L (3.6-5.0)
== END ==
LOC: OD 08:23
PROVIDERS: ATTEND Internal Medicine
DX: I10 Essential (primary) hypertension (principal); Z79.899 Other long term (current) drug therapy
CPT/HCPCS: 36415; 80048